=== PATIENT | male | born 2000 | race Caucasian/White ===

== ENCOUNTER 2022-07-20 01:48 | Emergency (ER) | payer BC ==
[~2022-07-20] VITALS: Ht 172.7 cm; Wt 79.5 kg
[2022-07-20 01:53] VITALS: TEMP 97.4
[2022-07-20 02:11] LABS: BASO # 0.1 K/mm3 (0.0-0.2); BASO % 0.6 % (0.0-2.0); EOS # 0.2 K/mm3 (0.0-0.7); EOS % 1.6 % (0.0-4.0); GRAN % 51.8 % (42.2-75.2); LYMPH # 4.1 K/mm3 (1.2-3.4); LYMPH % 35.7 % (20.0-51.0); MEAN CELL VOLUME 86 fl (80.0-100.0); MEAN CORPUSCULAR HEMOGLOBIN 29 pg (27-31); MEAN CORPUSCULAR HGB CONC 34 g/dl (33.0-37.0); MEAN PLATELET VOLUME 9.4 fl (7.4-10.4); MONO # 1.2 K/mm3 (0.1-0.6); PLATELET COUNT 280 K/mm3 (130-400); RED BLOOD COUNT 4.76 M/mm3 (4.20-5.60); REDCELL DISTRIBUTION WIDTH-CV 12.1 % (11.5-14.5)
[2022-07-20 02:30] LABS: ALBUMIN 4.2 gm/dL (3.5-5.0); BILIRUBIN,TOTAL 0.3 mg/dL (0.2-1.2); CALCIUM 8.9 mg/dL (8.4-10.2); CREATININE, serum 1.13 mg/dL (0.72-1.25); TOTAL PROTEIN 7.2 gm/dL (6.2-8.1)
[2022-07-20] MEDS ORDERED: NORCO 325 MG-51 TAB PO (03:48)
[2022-07-20] MEDS ORDERED: DOXYCYCLINE 10100 MG PO (03:48)
[2022-07-20 04:02] VITALS: BP 135/84; PULSE 89
== END 2022-07-20 04:02 | disposition home or self-care (01) ==
LOC: COL.ER 01:48
PROVIDERS: Family Medicine
DX: S21.132A Puncture wound without foreign body of left front wall of thorax without penetration into thoracic cavity, initial encounter (principal); Z28.310 Unvaccinated for COVID-19; Z23 Encounter for immunization; W17.89XA Other fall from one level to another, initial encounter; Y93.02 Activity, running
CPT/HCPCS: J0690; J1170; J2405; J3010; J7120; Q9967